=== PATIENT | male | born 1950 | race Caucasian/White ===

== ENCOUNTER → 2021-12-31 13:41 | Outpatient (CLI) | payer MEDICARE, OTHER, SELFPAY ==
--- NOTE | 2021-12-31 | DI.ECHO.S_ITS ---
[facility] [place]---------+ [facility] +---------+ : : [address] : : : : [id number] : : : : Phone: [phone]+ Echocardiogram Report + + :Name: NAEEM THOMAS Study Date: 12/31/2021 Height: 67 in : :[facility] ReadingLocation: Weight: 174 lb : : Gender: Male BSA: 1.9 m2 : :: 1950 Age: 71 yrs BP: 150/93 mmHg: :Reason For Study: HYPERTENSION : :Ordering Physician: ELBERT, : :SUZIE Performed By: Vane Palacios : :Referring: SUZIE BOSWELL : + + Interpretation Summary Normal sinus rhythm. Normal LV size and wall thickness; normal wall motion and LV systolic function. EF is 55-60%. Normal chamber sizes. Aortic valve is a trileaflet structure. There is mild associated aortic regurgitation. No significant valvular abnormalities. Normal aorta dimension. No prior study available for comparison. Procedure: A two-dimensional transthoracic echocardiogram with color flow and Doppler was performed. The study quality was technically adequate. There is no prior echocardiogram noted for this patient. The patient was in sinus rhythm with heart rates between 60-68 bpm during the exam. Left Ventricle: The left ventricle is normal in size and wall thickness. The ejection fraction is estimated to be 55-60%. Right Ventricle: The right ventricle is normal in size and function. Atria: The left atrial size is normal. Right atrial size is normal. There is no Doppler evidence for an interatrial shunt. Mitral Valve: The mitral valve is normal in structure and function. There is mild mitral regurgitation. Aortic Valve: The aortic valve is trileaflet. The aortic valve opens well. There is no aortic valve stenosis. There is mild aortic regurgitation. Tricuspid Valve: The tricuspid valve is normal in structure and function. There is trace tricuspid regurgitation. Pulmonic Valve: The pulmonic valve leaflets are thin and pliable; valve motion is normal. There is trace pulmonic regurgitation. Great Vessels: The aortic root is normal size. The dimensions of the ascending aorta are normal. The IVC is of normal diameter and collapses greater than 50% with a sniff. This suggests a low right atrial pressure of 3 mm Hg. Pericardium/ Pleura There is no pericardial effusion. There is no pleural effusion. MMode/2D Measurements & Calculations LVIDd: 4.4 cm LVOT diam: 2.2 cm LVIDs: 2.7 cm Ao root diam: 3.7 cm FS: 37.6 % asc Aorta Diam: 3.8 cm IVSd: 0.97 cm Ao Arch Diam (Prox Trans): 2.9 cm LVPWd: 1.0 cm LV elise. diameter/BSA (cm/m^2): 2.3 LV sys. diameter/BSA (cm/m^2): 1.4 LA A2 area: 20.0 cm2 RA long axis: 5.1 cm LA A4 area: 16.3 cm2 RA area: 16.3 cm2 LA length (vol): 5.3 cm RA vol: 44.4 ml LA vol: 52.3 ml RA : 23.3 ml/m2 LA vol index: 27.5 ml/m2 IVC diam: 1.9 cm RVD1 (basal): 3.8 cm RVD2 (mid): 2.8 cm TAPSE: 2.3 cm Doppler Measurements & Calculations Ao V2 max: 176.9 cm/sec AI P1/2t: 912.8 msec Ao V2 mean: 123.9 cm/sec AI dec slope: 134.2 cm/sec2 Ao max P.5 mmHg Ao mean P.8 mmHg Ao V2 VTI: 36.1 cm MV E max chris: 59.6 cm/sec PA V2 max: 96.9 cm/sec MV A max chris: 54.7 cm/sec PA V2 mean: 68.5 cm/sec MV E/A: 1.1 PA mean P.1 mmHg Med Peak E' Chris: 5.0 cm/sec PA pr(Accel): 34.5 mmHg E/E' med: 12.0 Lat Peak E' Chris: 6.0 cm/sec E/E' lat: 9.9 E/e' average: 11.0 MV dec time: 0.23 sec Electronically signed by: Mable Samuel M.D. on Reading Physician:01/01/2022 01:45 AM
== END ==
PROVIDERS: Family Provider Internal Medicine; PCP Internal Medicine; Referring Provider Internal Medicine; Visit Provider Internal Medicine
DX: I10 Essential (primary) hypertension (principal); I08.0 Rheumatic disorders of both mitral and aortic valves
CPT/HCPCS: 93306

== ENCOUNTER → 2022-08-27 12:55 | Outpatient (CLI) | payer MEDICARE, OTHER, SELFPAY ==
--- NOTE | 2022-08-27 | DI.RAD.S_ITS ---
PROCEDURE: XR CHEST 2V INDICATIONS: Acute bronchitis, unspecified TECHNIQUE: 2 views of the chest were acquired. COMPARISON: [facility], , CHEST 2 VIEW, 06/04/2010, 13:51. FINDINGS: Surgical changes and devices: None. Lungs and pleura: Lungs are clear. No pleural effusions or pneumothorax. Mediastinum: Mediastinal contours are normal. Heart size is normal. Bones and chest wall: No suspicious bony abnormalities. Soft tissues appear unremarkable. IMPRESSION: No evidence acute pulmonary process. Dictated by: Hayden Edward M.D. on 08/27/2022 at 14:31 Approved by: Hayden Edward M.D. on 08/27/2022 at 14:36
== END ==
PROVIDERS: Family Provider Internal Medicine; PCP Internal Medicine; Referring Provider Internal Medicine; Visit Provider Internal Medicine
DX: J20.9 Acute bronchitis, unspecified (principal)
CPT/HCPCS: 71046

== ENCOUNTER → 2022-12-30 07:04 | Outpatient (CLI) | payer MEDICARE, OTHER, SELFPAY ==
--- NOTE | 2022-12-30 | DI.CT.S_ITS ---
PROCEDURE: CT CHEST WO CON INDICATIONS: HTN/SOB TECHNIQUE: Noncontrast 5 mm thick sections acquired from the pulmonary apices to the posterior costophrenic angles. 1 mm lung window, 5 mm thick coronal and sagittal and 7 mm axial MIP reformats were then acquired. For radiation dose reduction, the following was used: automated exposure control, adjustment of mA and/or kV according to patient size. COMPARISON: None. FINDINGS: Image quality: Excellent. Lungs and pleura: No acute air space opacities. No pleural effusions or pneumothorax. There is a pleural-based somewhat spiculated appearing nodular density in the extreme right lung base on image 2049/3. It most likely represents nodular scarring versus atelectasis. Cannot exclude a spiculated mass, however. It measures approximately 1.4 cm. The lungs are otherwise clear. No other pulmonary nodules. Central and peripheral airways are patent and normal in caliber. Mediastinum: Heart size is normal. No pericardial effusion. Dense LAD calcifications. No mediastinal adenopathy by size criteria. Thoracic aorta and central pulmonary arteries are normal in size. Esophagus is normal in caliber. No hiatal hernia. Bones and chest wall: No suspicious bony lesions. No vertebral body compression fractures. No axillary or supraclavicular adenopathy by size criteria. Thyroid gland is unremarkable . Abdomen: Visualized upper abdominal solid organs and bowel loops appear normal in the absence of contrast. IMPRESSION: 1. Density in the right lung base abutting the pleura most likely represents an area of atelectasis versus scarring. However, cannot exclude a spiculated lesion. It measures approximately 1.4 cm. 2. LAD coronary artery calcifications. 3. No acute pulmonary infiltrates. Comment: Consider follow-up chest CT in 4-6 months. Dictated by: Hayden Edward M.D. on 12/30/2022 at 18:05 Approved by: Hayden Edward M.D. on 12/30/2022 at 18:08
== END ==
PROVIDERS: Family Provider Internal Medicine; PCP Internal Medicine; Referring Provider Internal Medicine; Visit Provider Internal Medicine
DX: I10 Essential (primary) hypertension (principal); R06.02 Shortness of breath; I25.10 Atherosclerotic heart disease of native coronary artery without angina pectoris; R91.8 Other nonspecific abnormal finding of lung field
CPT/HCPCS: 71250

== ENCOUNTER → 2023-01-06 07:31 | Outpatient (CLI) | payer MEDICARE, OTHER, SELFPAY ==
--- NOTE | 2023-01-06 | DI.NM.S_ITS ---
PROCEDURE: NM EXERCISE TREADMILL NON NUC COMPARISON: None. INDICATIONS: HTN/SOB FINDINGS: The patient exercised for 10 minutes and 8 seconds reaching 99% of maximum predicted heart rate. Excellent exercise tolerance with JACK -55%. No angina and no ST changes during the study. One ventricular couplet noted. IMPRESSION: Low risk, normal treadmill ECG only stress test from inducible ischemia standpoint. Excellent exercise tolerance (JACK -55%). Dictated by: Miguel Saxena MD on 01/07/2023 at 17:07 Approved by: Miguel Saxena MD on 01/07/2023 at 17:08
== END ==
PROVIDERS: Family Provider Internal Medicine; PCP Internal Medicine; Referring Provider Internal Medicine Cardiovascular Disease; Visit Provider Internal Medicine Cardiovascular Disease
DX: R06.02 Shortness of breath (principal)
CPT/HCPCS: 93017

== ENCOUNTER → 2023-03-25 13:30 | Outpatient (CLI) | payer MEDICARE, OTHER, SELFPAY ==
--- NOTE | 2023-03-25 13:32 | DI.CT.S_ITS ---
PROCEDURE: CT HEAD/BRAIN WO CON INDICATIONS: Contusion of other part of head, initial encounter TECHNIQUE: Noncontrast 4.5 mm thick angled axial sections acquired from the foramen magnum to the vertex, with coronal and sagittal reformats. For radiation dose reduction, the following was used: automated exposure control, adjustment of mA and/or kV according to patient size. COMPARISON: None. FINDINGS: Image quality: Diagnostic. CSF spaces: Basal cisterns are patent. No extra-axial fluid collections. The ventricles are symmetric in size and shape. Brain: No intracranial bleeds or masses. There is cerebral volume loss for age, with resultant ventricular and sulcal prominence. There are periventricular and deep white matter chronic small vessel ischemic changes. There is intracranial internal carotid artery atherosclerosis. Skull and face: Subcutaneous hematoma over the right superior aspect of the orbit. Calvarium and visualized facial bones appear intact, without suspicious lesions. Sinuses: Please see separately dictated CT of the sinuses. IMPRESSION: No acute intracranial pathology. Subcutaneous hematoma over the superior aspect of the right orbit. Dictated by: Adalberto Cortez M.D. on 03/25/2023 at 14:08 Approved by: Adalberto Cortez M.D. on 03/25/2023 at 14:10
--- NOTE | 2023-03-25 13:32 | DI.CT.S_ITS ---
PROCEDURE: CT SINUS SCREEN WO CON INDICATIONS: Contusion of other part of head, initial encounter TECHNIQUE: Noncontrast 3.0 mm axial images acquired from the frontal sinuses to the mid-sella, with coronal and sagittal reformats. For radiation dose reduction, the following was used: automated exposure control, adjustment of mA and/or kV according to patient size. COMPARISON: None. FINDINGS: Image quality: Excellent. Maxillary Sinuses: No bony remodeling or destruction. Sinuses are clear. Ethmoid Air Cells: No bony remodeling or destruction. Sinuses are clear. Sphenoid Sinuses: No bony remodeling or destruction. Sinuses are clear. Frontal Sinuses: No bony remodeling or destruction. Sinuses are clear. Ostiomeatal Complexes: Ostiomeatal complexes are patent. Bilateral Heri cells. Miscellaneous: Subcutaneous hematoma over the right superior orbit. Bilateral lens replacement. Visualized intra-orbital contents are normal. Left-sided jonas bullosa. No paradoxical turbinate curvature. Mild rightward nasal septal deviation. IMPRESSION: 1. No significant paranasal sinus disease. 2. No acute facial fractures. Subcutaneous hematoma over the right superior orbit. Dictated by: Adalberto Cortez M.D. on 03/25/2023 at 14:10 Approved by: Adalberto Cortez M.D. on 03/25/2023 at 14:15
== END ==
LOC: CT 13:30
PROVIDERS: Family Provider Internal Medicine; PCP Internal Medicine; Referring Provider Internal Medicine; Visit Provider Internal Medicine
DX: S00.83XA Contusion of other part of head, initial encounter (principal); I65.29 Occlusion and stenosis of unspecified carotid artery; J34.2 Deviated nasal septum; J34.3 Hypertrophy of nasal turbinates; X58.XXXA Exposure to other specified factors, initial encounter
CPT/HCPCS: 70450; 70486

== ENCOUNTER → 2023-08-18 11:33 | Outpatient (CLI) | payer MEDICARE, OTHER, SELFPAY ==
--- NOTE | 2023-08-18 | DI.CT.S_ITS ---
PROCEDURE: CT CHEST WO CON INDICATIONS: Atelectasis TECHNIQUE: Noncontrast 5 mm thick sections acquired from the pulmonary apices to the posterior costophrenic angles. 1 mm lung window, 5 mm thick coronal and sagittal and 7 mm axial MIP reformats were then acquired. For radiation dose reduction, the following was used: automated exposure control, adjustment of mA and/or kV according to patient size. COMPARISON: [facility], CT, CT CHEST WO CON, 12/30/2022, 7:08. FINDINGS: Image quality: Diagnostic. Lower Neck: No enlarged lymph nodes. Thyroid: No thyroid nodules which require sonographic follow up, per consensus guidelines. Axillae: No enlarged lymph nodes. Chest Wall: Unremarkable. Bones: Unremarkable. Lungs and Pleura: No pneumothorax or pleural effusions. Focal consolidative radiopacities are redemonstrated at the posterior right lung base. These appear unchanged from the study dated December 30, 2022 and may represent pulmonary scarring. No new suspicious pulmonary nodules which require follow-up. No acute airspace opacities. Heart: Heart size is normal. No pericardial effusion. Thoracic Vessels: The aorta and pulmonary arteries demonstrate normal size. Mediastinum and Jannette: No enlarged lymph nodes. Esophagus: No wall thickening. No hiatal hernia. Upper Abdomen: Visualized upper abdomen solid organs and bowel loops appear normal. IMPRESSION: 1. Stable posterior right basilar pulmonary radiopacities when compared with the study dated December 30, 2022. Given the stability over time this may represent pulmonary scarring. In a high-risk patient, optional 12 month follow-up could be used to ensure stability. 2. No new suspicious pulmonary nodules or acute airspace opacities. Dictated by: Shani Krishnamurthy M.D. on 08/18/2023 at 12:27 Approved by: Shani Krishnamurthy M.D. on 08/18/2023 at 12:31
== END ==
LOC: CT 11:34
PROVIDERS: Family Provider Internal Medicine; PCP Internal Medicine; Referring Provider Internal Medicine; Visit Provider Internal Medicine
DX: J98.11 Atelectasis (principal)
CPT/HCPCS: 71250